=== PATIENT | female | born 1995 | race Caucasian/White ===

== ENCOUNTER 2024-04-06 11:10 | Emergency (ER) | payer MEDICAID, SELFPAY ==
[2024-04-06] VITALS (13 sets, daily range): BP systolic 102–145; BP diastolic 68–92; PULSE 62–85; TEMP 36.8; O2SAT 97–100; BMI 30.4
--- NOTE | 2024-04-06 11:38 | PC.NURSE ---
Patient reports history of a small kidney on right side and history of sepsis with kidney failure last July. 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 Patient has had right flank pain for past 2 weeks and was hoping it was just a kidney stone and would pass. patient is currently in methadone clinic for addiction issues and had recent treatment for hepatitis C. patient endorses one episode of vomiting yesterday. Patient states she was able to receive her methadone today
--- NOTE | 2024-04-06 11:53 | CT_ITS ---
[address] [address] Patient Name: ELBERT HOFFMAN MRN: [id number] date: 1995 Sex: F Assigned Patient Location: ED.MAIN Current Patient Location: Accession/Order Number: [id number] Exam Date: 04/06/2024 12:26 Report Date: 04/06/2024 12:52 At the request of: YANY CARSON Procedure: CT abdomen pelvis wo con EXAMINATION: CT abdomen pelvis wo con HISTORY: flank pain COMPARISON: No relevant comparison available. TECHNIQUE: Axial, Coronal, and Sagittal images were created without IV contrast. Dose reduction techniques were achieved by using automated exposure control and/or adjustment of mA and/or kV according to patient size and/or use of iterative reconstruction technique. FINDINGS: LUNG BASES: No visible pulmonary or pleural disease. LIVER: No enlargement, atrophy, abnormal density, or significant focal lesion. BILIARY: No dilatation or calcification. PANCREAS: No lesion, fluid collection, ductal dilatation, or atrophy. SPLEEN: No enlargement or focal lesion. ADRENALS: No mass or enlargement. KIDNEYS: Severe right atrophy with nonobstructing nephrolith. Normal left. Bilateral nonobstructing nephroliths BOWEL/MESENTERY: No visible mass, obstruction, or bowel wall thickening. Normal appendix AORTA/VASCULAR: No aneurysm or dissection. RETROPERITONEUM: No mass or adenopathy. LYMPH NODES: No adenopathy. URINARY BLADDER: No visible focal wall thickening, lesion, or calculus. PELVIC ORGANS: No visible mass. Pelvic organs appropriate for patient age. ABDOMINAL WALL: No mass or hernia. BONES: No bony lesion or fracture. OTHER: Negative. CT/CT abdomen pelvis wo con IMPRESSION: Bilateral nonobstructing nephrolithiasis No obstructive uropathy Electronically authenticated by: TRAMAINE ARMSTRONG Date: 04/06/2024 12:52
[2024-04-06 12:01] LABS: Basophils Percent Auto 0.3 % (0.2-2.0); Eosinophils Absolute Auto 0.2 10^3/uL (0.0-0.7); Hematocrit 40.9 % (36.0-48.0); Immature Granulocytes Abs Auto 0.02 10^3/uL (0.00-0.03); Immature Granulocytes Pct Auto 0.2 % (0.0-0.5); Lymphocytes Absolute Auto 3.2 10^3/uL (1.2-3.8); Mean Corpuscular HGB Conc 34.2 g/dL (29.9-35.2); Mean Corpuscular Hemoglobin 33.7 pg (26.7-34.0); Mean Corpuscular Volume 98.3 fL (81.0-99.0); Mean Platelet Volume 10.9 fL (9.5-13.5); Monocytes Absolute Auto 0.5 10^3/uL (0.3-0.8); Neutrophils Absolute Auto 6.1 10^3/uL (1.4-6.5); Neutrophils Percent Auto 60.5 % (43.0-75.0); Platelet Count 279 10^3/uL (150-450); Red Blood Count 4.16 10^6/uL (4.20-5.40); Red Cell Distribution Width 12.4 % (11.0-15.0); White Blood Count 10.1 10^3/uL (4.0-11.0)
[2024-04-06 12:02] LABS: Bilirubin Urine NEGATIVE (NEGATIVE); Blood Urine NEGATIVE (NEGATIVE); Clarity Urine SL CLOUDY (CLEAR); Color Urine YELLOW (YELLOW); Glucose Urine UA NEGATIVE (NEGATIVE); Ketones Urine TRACE mg/dL (NEGATIVE); Leukocyte Esterase Urine MODERATE (NEGATIVE); Nitrite Urine NEGATIVE (NEGATIVE); Protein Urine TRACE mg/dL (NEG/TRACE); Specific Gravity Urine 1.025 (1.005-1.025); Urobilinogen Urine 0.2 EU/dL (0.2-1.0)
[2024-04-06 12:06] LABS: Urine Microscopic Indicated YES
[2024-04-06 12:12] LABS: Bacteria Urine MODERATE #/HPF (NONE SEEN); Calcium Oxalate Crystals Urine FEW; Cast Seen? NONE SEEN #/LPF (NONE SEEN); Crystals Seen? Seen #/HPF (None Seen); Mucus Urine TRACE (NONE SEEN); Squamous Epithelial Cell Urine MODERATE #/LPF (NONE/RARE); Urine Culture Indicated YES
[2024-04-06 12:26] LABS: Alanine Aminotransferase 19 U/L (14-59); Albumin Globulin Ratio 0.9; Albumin Level 3.8 g/dL (3.4-5.0); Alkaline Phosphatase 97 U/L (46-116); Aspartate Amino Transferase 19 U/L (15-37); BUN Creatinine Ratio 11.8; Bilirubin Total 0.2 mg/dL (0.2-1.0); Calcium 8.9 mg/dL (8.5-10.1); Carbon Dioxide 26.7 mmol/L (21.0-32.0); Chloride 104 mmol/L (98-107); Estimated GFR (African America >60 (>=60); Estimated GFR (Non-African Ame 50 (>=60); Glucose 93 mg/dL (74-106); Potassium 3.7 mmol/L (3.5-5.1); Sodium 141 mmol/L (136-145); Total Protein 7.8 g/dL (6.4-8.2)
--- NOTE | 2024-04-06 12:29 | ED.GENADUL1 ---
HPI HPI - General Adult General Chief complaint: Urogenital-Female Stated complaint: KIDNEY ISSUES Time Seen by Provider: 04/06/24 11:21 Source: patient Mode of arrival: walk-in Limitations: no limitations History of Present Illness HPI narrative: Patient presents to ED complaining of flank pain. She says she has had right-sided flank pain for the past few days that she thought maybe it was a kidney stone but she has not gotten any better. She has a history of sepsis with obstructing stones in the past she has had lithotripsy and nephrostomy tubes in the past. She does have a history of IV drug abuse but is at the methadone clinic now. No fevers But she has had nausea vomiting today. No abdominal pain just flank pain. Denies . Related Data Previous Rx's ?Medication ?Instructions ?Recorded cephalexin 500 mg capsule 500 mg PO BID 7 days #14 caps 04/06/24 Allergies Allergy/AdvReac Type Severity Reaction Status Date / Time nalbuphine [From Nubain] Allergy Intermediate Verified 04/06/24 11:17 Opioid HPI Opioid Management Most Recent Opioid Data: Last Pain Scale 6 04/06/24 12:59 Last MAR Pain Assessment 04/06/24 12:59 Review of Systems ROS Status of ROS 10 or more systems reviewed and unremarkable except as noted in history and below Exam Narrative Exam Narrative: Time Seen: [] Vital Signs: [Per nurse's notes.] General: [Alert] Skin: [Warm, dry, no rash.] Head: [Normocephalic, atraumatic.] Neck: [Supple, trachea midline.] Eye: [Pupils are equal, round and reactive to light, extraocular movements are intact, normal conjunctiva.] Ears, nose, mouth and throat: oral mucosa moist. Cardiovascular: [Regular rate and rhythm, no murmur.] Respiratory: [Lungs are clear to auscultation, respirations are non-labored, breath sounds are equal.] Chest wall: [No tenderness, no deformity.] Gastrointestinal: [Soft, nontender, non distended, normal bowel sounds.]Right CVA tenderness MSK: 5 out of 5 muscle strength x 4 extremities no calf pain or edema Lymphatics: [No lymphadenopathy.] Psychiatric: [Cooperative, appropriate mood & affect.] Neurological: [Alert and oriented to person, place, time, and situation, no focal neurological deficit observed.] Constitutional Vital Signs, click to edit/add: Last Vital Signs Temp 98.3 F 04/06/24 11:14 Pulse 85 04/06/24 11:14 Resp 18 04/06/24 11:14 BP 127/78 04/06/24 12:00 Pulse Ox 99 04/06/24 12:40 Course Vital Signs Vital signs: Vital Signs Temperature 98.3 F 04/06/24 11:14 Pulse Rate 85 04/06/24 11:14 Respiratory Rate 18 04/06/24 11:14 Blood Pressure 145/79 H 04/06/24 11:14 Pulse Oximetry 100 04/06/24 11:14 Temperature 98.3 F 04/06/24 11:14 Pulse Rate 85 04/06/24 11:14 Respiratory Rate 18 04/06/24 11:14 Blood Pressure 127/78 04/06/24 12:00 Pulse Oximetry 99 04/06/24 12:40 Medical Decision Making MDM Narrative Medical decision making narrative: Patient's labs show urinary tract infection. No elevated white blood cell count no fever. CT scan shows atrophied right kidney which is a known issue. No obstructing kidney stone no evidence of pyelonephritis. Patient will be given oral antibiotics after her dose of IV antibiotics here. Okay with discharge home no need for hospital admission at this time. Return to ER if worsening pain fevers chills vomiting or any other concerns occur Differential Diagnosis Differential Diagnosis: Kidney stone pyelonephritis UTI sepsis Medical Records Medical records reviewed: Yes I reviewed the patient's medical records Lab Data Lab results reviewed: Yes I reviewed the patient's lab results Labs: Lab Results 04/06/24 04/06/24 Range/Units 11:20 11:28 WBC 10.1 (4.0-11.0) 10^3/uL RBC 4.16 L (4.20-5.40) 10^6/uL Hgb 14.0 (12.0-16.0) g/dL Hct 40.9 (36.0-48.0) % MCV 98.3 (81.0-99.0) fL MCH 33.7 (26.7-34.0) pg MCHC 34.2 (29.9-35.2) g/dL RDW 12.4 (11.0-15.0) % Plt Count 279 (150-450) 10^3/uL MPV 10.9 (9.5-13.5) fL Neut % (Auto) 60.5 (43.0-75.0) % Lymph % (Auto) 32.0 (20.5-60.0) % [place] % (Auto) 5.0 (1.7-12.0) % Eos % (Auto) 2.0 (0.9-7.0) % Baso % (Auto) 0.3 (0.2-2.0) % Neut # (Auto) 6.1 (1.4-6.5) 10^3/uL Lymph # (Auto) 3.2 (1.2-3.8) 10^3/uL [place] # (Auto) 0.5 (0.3-0.8) 10^3/uL Eos # (Auto) 0.2 (0.0-0.7) 10^3/uL Baso # (Auto) 0.0 (0.0-0.1) 10^3/uL Abs Immat Gran (auto) 0.02 (0.00-0.03) 10^3/uL Imm/Tot Granulo (auto) 0.2 (0.0-0.5) % Sodium 141 (136-145) mmol/L Potassium 3.7 (3.5-5.1) mmol/L Chloride 104 (98-107) mmol/L Carbon Dioxide 26.7 (21.0-32.0) mmol/L Anion Gap 14.0 BUN 15.0 (7.0-18.0) mg/dL Creatinine 1.27 H (0.55-1.02) mg/dL Est GFR ( Amer) >60 (>=60) Est GFR (Non-Af Amer) 50 L (>=60) BUN/Creatinine Ratio 11.8 Glucose 93 (74-106) mg/dL Calcium 8.9 (8.5-10.1) mg/dL Total Bilirubin 0.2 (0.2-1.0) mg/dL AST 19 (15-37) U/L ALT 19 (14-59) U/L Alkaline Phosphatase 97 (46-116) U/L Total Protein 7.8 (6.4-8.2) g/dL Albumin 3.8 (3.4-5.0) g/dL Globulin 4.0 g/dL Albumin/Globulin Ratio 0.9 Urine Color Yellow (YELLOW) Urine Clarity Sl cloudy (CLEAR) Urine pH 6.0 (5.0-9.0) Ur Specific [place] 1.025 (1.005-1.025) Urine Protein Trace (NEG/TRACE) mg/dL Urine Glucose (UA) Negative (NEGATIVE) mg/dL Urine Ketones Trace A (NEGATIVE) mg/dL Urine Occult Blood Negative (NEGATIVE) Urine Nitrite Negative (NEGATIVE) Urine Bilirubin Negative (NEGATIVE) Urine Urobilinogen 0.2 (0.2-1.0) EU/dL Ur Leukocyte Esterase Moderate A (NEGATIVE) Urine RBC 2-5 A (0-2) #/HPF Urine WBC 2-5 A (NONE SEEN) #/HPF Ur Squamous Epith Cells Moderate A (NONE/RARE) #/LPF Urine Crystals Seen A (None Seen) #/HPF Calcium Oxalate Crystal Few Urine Bacteria Moderate A (NONE SEEN) #/HPF Urine Casts None seen (NONE SEEN) #/LPF Urine Mucus Trace A (NONE SEEN) Ur Culture Indicated? Yes Imaging Data CT scan - abdomen: Radiologist's impression: ITS Impressions Abdomen/Pelvis CT 04/06/24 11:53 IMPRESSION: Bilateral nonobstructing nephrolithiasis No obstructive uropathy Electronically authenticated by: TRAMAINE ARMSTRONG Date: 04/06/2024 12:52 Discharge Plan Discharge Stand Alone Forms: Portal Instructions Chief Complaint: Urogenital-Female Clinical Impression: Urinary tract infection Patient Disposition: Home, Self-Care Time of Disposition Decision: 13:04 Condition: Good Mode of Transportation: Private Vehicle Prescriptions / Home Meds: New cephalexin 500 mg capsule 500 mg PO BID 7 Days Qty: 14 0RF Print Language: Mozambican Instructions: Urinary Tract Infection in Women (DC) Referrals: Physician,Non-Staff, [Primary Care Provider] - 1 week
[2024-04-06] MEDS: 0.9 % SODIUM CHLORIDE 1,000 ML 1000 ML IV (12:45)
[2024-04-06] MEDS: CEFTRIAXONE 1,000 MG in 0.9 % SODIUM CHLORIDE 50 ML 100 MG IV (12:46)
[2024-04-06] MEDS: KETOROLAC TROMETHAMINE 30 MG/ML VIAL IVP (12:59)
[2024-04-06] MEDS: ONDANSETRON PF 4 MG/2 ML VIAL IV (12:59)
[2024-04-06 13:09] LABS: Lactate/Lactic Acid 1.2 mmol/L (0.4-2.0)
--- NOTE | 2024-04-09 15:02 | PC.NURSE ---
04/09/24 1502 pt urine c+s from 04/06/[address] mclain. nno. Patt Barreto RN
== END 2024-04-06 13:49 | disposition home or self-care (01) ==
PROVIDERS: Emergency Provider Emergency Medicine
DX: N39.0 Urinary tract infection, site not specified (principal); Z87.442 Personal history of urinary calculi
CPT/HCPCS: 36415; 74176; 80053; 81001; 83605; 85025; 87086; 87150; 87186; 96361; 96365; 96375; 99284; J0696; J1885; J2405

== ENCOUNTER 2024-07-09 20:23 | Emergency (ER) | payer MEDICAID, SELFPAY ==
[2024-07-09 20:33] VITALS: BP 123/86; PULSE 77; TEMP 36.9; O2SAT 98; BMI 30.4
--- NOTE | 2024-07-09 20:44 | ED_ITS ---
HPI - Female Genitourinary General Chief complaint: Urogenital-Female Stated complaint: FLANK PAIN Time Seen by Provider: 07/09/24 20:39 Source: patient Mode of arrival: walk-in Limitations: no limitations History of Present Illness HPI Narrative: 28-year-old female presents for possible UTI. She has been having some pain on the right side and she states her urine smells strong. She has had the symptoms for about a week. No gross hematuria. She also has history of kidney stones but there is been no injury or gross hematuria or left-sided pain. She is being treated at a methadone clinic. Related Data Previous Rx's ?Medication ?Instructions ?Recorded ibuprofen 800 mg tablet 800 mg PO Q8H PRN pain #20 tabs 07/09/24 ondansetron 4 mg disintegrating 4 mg PO Q6H PRN nausea and 07/09/24 tablet vomiting #20 tabs tamsulosin 0.4 mg capsule (Flomax) 0.4 mg PO DAILY #7 caps 07/09/24 Allergies Allergy/AdvReac Type Severity Reaction Status Date / Time nalbuphine [From Nubain] Allergy Intermediate Vomiting Verified 07/09/24 20:33 Review of Systems ROS Narrative A ten point review of systems is negative except as noted above. PFSH PFSH Social History Little interest or pleasure in doing things: not at all Feeling down, depressed, or hopeless: not at all Exam Narrative Exam Narrative: Nurses note and vital signs reviewed and patient is not hypoxic. General: The patient appears well and in no apparent distress. Patient is resting comfortably on cart. Skin: Warm, dry, no pallor noted. There is no rash noted. Head: Normocephalic, atraumatic Eye: Normal conjunctiva, no drainage Ears, Nose, Mouth, and Throat: oral mucosa is moist. Nares patent. Cardiovascular: Regular Rate and Rhythm Respiratory: Patient is in no distress, no accessory muscle use, lungs are clear to auscultation, no wheezing, rales or rhonchi Back: non-tender, no CVA tenderness bilaterally to percussion. GI: Soft and nontender. No bruise or rash Musculoskeletal: The patient has no evidence of calf tenderness, no pitting edema, symmetrical pulses noted bilaterally Neurological: A&O, normal speech Psychiatric: Cooperative Constitutional Vital Signs, click to edit/add: Last Vital Signs Temp 98.4 F 09/14/24 20:33 Pulse 77 07/09/24 20:33 Resp 18 07/09/24 20:33 BP 123/86 07/09/24 20:33 Pulse Ox 98 07/09/24 20:33 O2 Del Method Room Air 07/09/24 20:33 Course Vital Signs Vital signs: Vital Signs Temperature 98.4 F 07/09/24 20:33 Pulse Rate 77 07/09/24 20:33 Respiratory Rate 18 07/09/24 20:33 Blood Pressure 123/86 07/09/24 20:33 Pulse Oximetry 98 07/09/24 20:33 Oxygen Delivery Method Room Air 07/09/24 20:33 Temperature 98.4 F 07/09/24 20:33 Pulse Rate 77 07/09/24 20:33 Respiratory Rate 18 07/09/24 20:33 Blood Pressure 123/86 07/09/24 20:33 Pulse Oximetry 98 07/09/24 20:33 Oxygen Delivery Method Room Air 07/09/24 20:33 MDM - Female Genitourinary MDM Narrative Medical decision making narrative: CT on my interpretation shows a 3 mm mid ureteral stone. She does not require admission to the hospital and she is prescribed Flomax, Zofran, and ibuprofen. She is in a methadone clinic and we will avoid narcotics. She is referred to urology. Treatment diagnosis and follow-up were discussed with the patient. Differential Diagnosis Differential diagnosis: Likely urinary tract infection and other (Kidney stone) Lab Data Attestation: I reviewed the patient's lab results. Labs: Lab Results 07/09/24 Range/Units 20:43 Urine Color Lt. yellow (YELLOW) Urine Clarity Clear (CLEAR) Urine pH 6.5 (5.0-9.0) Ur Specific [place] 1.015 (1.005-1.025) Urine Protein Negative (NEG/TRACE) mg/dL Urine Glucose (UA) Negative (NEGATIVE) mg/dL Urine Ketones Negative (NEGATIVE) mg/dL Urine Occult Blood Negative (NEGATIVE) Urine Nitrite Negative (NEGATIVE) Urine Bilirubin Negative (NEGATIVE) Urine Urobilinogen 0.2 (0.2-1.0) EU/dL Ur Leukocyte Esterase Trace A (NEGATIVE) Urine RBC None seen (0-2) #/HPF Urine WBC 2-5 A (NONE SEEN) #/HPF Ur Squamous Epith Cells Few A (NONE/RARE) #/LPF Urine Crystals None seen (None Seen) #/HPF Urine Bacteria Trace A (NONE SEEN) #/HPF Urine Casts None seen (NONE SEEN) #/LPF Urine Mucus None seen (NONE SEEN) Urine HCG, Qual Negative (NEGATIVE) Imaging Data CT scan - abdomen: My impression: 3 mm right ureteral stone Discharge Plan Discharge Chief Complaint: Urogenital-Female Clinical Impression: Kidney stone Patient Disposition: Home, Self-Care Time of Disposition Decision: 22:34 Condition: Good Mode of Transportation: Private Vehicle Prescriptions / Home Meds: New ibuprofen 800 mg tablet 800 mg PO Q8H PRN (Reason: pain) Qty: 20 0RF tamsulosin [Flomax] 0.4 mg capsule 0.4 mg PO DAILY Qty: 7 0RF ondansetron 4 mg tablet,disintegrating 4 mg PO Q6H PRN (Reason: nausea and vomiting) Qty: 20 0RF Print Language: Uzbek Instructions: Kidney Stones (ED), How to Strain Your Urine (ED) Referrals: LUIS A RICHARDSON [Primary Care Provider] - 1 week Cirilo Mayes MD [Physician] - 1 week
[2024-07-09 20:56] LABS: Bilirubin Urine NEGATIVE (NEGATIVE); Blood Urine NEGATIVE (NEGATIVE); Clarity Urine CLEAR (CLEAR); Color Urine LT. YELLOW (YELLOW); Glucose Urine UA NEGATIVE (NEGATIVE); Ketones Urine NEGATIVE (NEGATIVE); Leukocyte Esterase Urine TRACE (NEGATIVE); Nitrite Urine NEGATIVE (NEGATIVE); Protein Urine NEGATIVE (NEG/TRACE); Specific Gravity Urine 1.015 (1.005-1.025); Urobilinogen Urine 0.2 EU/dL (0.2-1.0); pH Urine 6.5 (5.0-9.0)
[2024-07-09 20:58] LABS: HCG Qualitative Urine* NEGATIVE (NEGATIVE); Internal Control Within Normal Limits
[2024-07-09 21:19] LABS: Bacteria Urine TRACE #/HPF (NONE SEEN); Cast Seen? NONE SEEN #/LPF (NONE SEEN); Crystals Seen? None Seen #/HPF (None Seen); Mucus Urine NONE SEEN (NONE SEEN); RBC Urine NONE SEEN #/HPF (0-2); Squamous Epithelial Cell Urine FEW #/LPF (NONE/RARE)
--- NOTE | 2024-07-09 21:23 | CT_ITS ---
[address] [address] Patient Name: ELBERT HOFFMAN MRN: [id number] date: 1995 Sex: F Assigned Patient Location: ER Current Patient Location: Accession/Order Number: [id number] Exam Date: 07/09/2024 21:32 Report Date: 07/09/2024 23:05 At the request of: LEODAN MCFARLAND Procedure: CT abdomen pelvis wo con CT ABDOMEN/PELVIS WITHOUT IV CONTRAST. INDICATION: right flank pain, r/o stone COMPARISON: 04/06/2024 TECHNIQUE: Contiguous axial images were obtained from the lung bases to the pelvic floor without intravenous or oral contrast. Coronal and sagittal reformations are provided. FINDINGS: Somewhat limited evaluation due to motion artifact. LOWER LUNGS: Clear. LIVER/BILIARY TREE: No discrete lesion. No intrahepatic ductal dilatation. GALLBLADDER: No significant gallbladder wall thickening. No radiopaque stone. CBD: Normal CBD. SPLEEN: Normal in size. PANCREAS: No appreciable peripancreatic fluid. No pancreatic ductal dilatation. No discrete lesion. ADRENALS: Normal. KIDNEYS: Redemonstrated severely atrophic right kidney. No hydronephrosis. There is a nonobstructing 5 mm left renal stone. STOMACH AND BOWEL: Stomach is unremarkable. No dilated bowel loops. No bowel wall thickening. Moderate colonic fecal load. APPENDIX: Normal appendix. PERITONEAL CAVITY: No fluid. No fat stranding. ABDOMINAL WALL: No subcutaneous stranding. No subcutaneous fluid collection. LYMPH NODES: No mesenteric or retroperitoneal lymphadenopathy by CT criteria. ABDOMINAL AORTA: No aneurysm. PELVIS: No acute abnormality. MUSCULOSKELETAL: No acute osseous abnormality. CT/CT abdomen pelvis wo con IMPRESSION: 1. No acute abnormality in the abdomen or pelvis. 2. Moderate colonic fecal load. 3. Left nephrolithiasis. No obstructive uropathy. Electronically authenticated by: SRINIVAS LOMAS Date: 07/09/2024 23:05
== END 2024-07-09 22:42 | disposition home or self-care (01) ==
PROVIDERS: Emergency Provider Emergency Medicine; PCP Family Medicine
DX: N20.0 Calculus of kidney (principal); Z87.442 Personal history of urinary calculi
CPT/HCPCS: 74176; 81001; 84703; 99284

== ENCOUNTER 2025-02-22 13:04 | Emergency (ER) | payer MEDICAID, SELFPAY ==
[2025-02-22 13:32] VITALS: BP 152/88; PULSE 76; TEMP 36.8; O2SAT 98; BMI 25.8
[2025-02-22 13:47] LABS: Bilirubin Urine NEGATIVE (NEGATIVE); Blood Urine NEGATIVE (NEGATIVE); Clarity Urine CLEAR (CLEAR); Color Urine LT. YELLOW (YELLOW); Glucose Urine UA NEGATIVE (NEGATIVE); Ketones Urine NEGATIVE (NEGATIVE); Leukocyte Esterase Urine TRACE (NEGATIVE); Nitrite Urine NEGATIVE (NEGATIVE); Protein Urine NEGATIVE (NEG/TRACE); Specific Gravity Urine 1.015 (1.005-1.025); Urobilinogen Urine 0.2 EU/dL (0.2-1.0); pH Urine 6.5 (5.0-9.0)
[2025-02-22 13:49] LABS: Urine Microscopic Indicated YES
[2025-02-22 13:58] LABS: Bacteria Urine TRACE #/HPF (NONE SEEN); RBC Urine 0-2 #/HPF (0-2)
[2025-02-22 13:59] LABS: Cast Seen? NONE SEEN #/LPF (NONE SEEN); Crystals Seen? None Seen #/HPF (None Seen); Mucus Urine TRACE (NONE SEEN); Squamous Epithelial Cell Urine FEW #/LPF (NONE/RARE); Urine Culture Indicated NO
--- NOTE | 2025-02-22 14:40 | ED.GENADUL1 ---
HPI HPI - General Adult General Chief complaint: Abdominal Pain Stated complaint: FOGGY IN HEAD, NOT URINATING, ABDOMINAL PAIN, FLA Time Seen by Provider: 02/22/25 14:38 Source: patient Mode of arrival: walk-in History of Present Illness HPI narrative: 29 year old female presents to the ED with concerns regarding her renal function. States she has noticed that she does not have the appropriate amount of urine output for the fluids that she has been drinking. Reports noticing a film that sits on top of her urine. Onset was a few days ago. She is concerned she is going to need dialysis. Denies fever, chills, dizziness, CP, SOB. Denies abd pain, N/V/D, flank pain. Denies dysuria, hematuria. Denies vaginal bleeding, discharge, odor, itching. Related Data Home Medications ?Medication ?Instructions ?Recorded ?Confirmed methadone 10 mg/5 mL oral solution 120 mg PO DAILY 02/22/25 02/22/25 Allergies Allergy/AdvReac Type Severity Reaction Status Date / Time nalbuphine (From Nubain) Allergy Intermediate Vomiting Verified 07/09/24 20:33 Opioid HPI Opioid Management Most Recent Opioid Data: Last Pain Scale 3 07/09/24, 20:40 Review of Systems ROS Constitutional Denies: fever or chills Ears, nose, mouth, and throat Denies: neck pain Cardiovascular Denies: chest pain Respiratory Denies: shortness of breath or cough Gastrointestinal Denies: abdominal pain, nausea, vomiting or diarrhea Genitourinary Denies: painful urination, urinary frequency, urinary urgency, urinary incontinence, blood in urine, difficulty voiding, vaginal bleeding, vaginal discharge, genital lesion, genital itching or vaginal odor Musculoskeletal Denies: back pain or neck pain Integumentary/Breast Denies: rash Neurological Denies: headache, weakness in extremities or dizziness PFSH PFSH Social History Little interest or pleasure in doing things: not at all Feeling down, depressed, or hopeless: not at all Exam Constitutional Vital Signs, click to edit/add: Last Vital Signs Temp 98.2 F 02/22/25 13:32 Pulse 76 02/22/25 13:32 Resp 18 02/22/25 13:32 BP 152/88 H 02/22/25 13:32 Pulse Ox 98 02/22/25 13:32 O2 Del Method Room Air 02/22/25 13:32 Common normals: no apparent distress and oriented x3 General appearance: cooperative HENMT Common normals: external ears normal and moist oral mucous membranes Eye Common normals: conjunctivae normal and no scleral icterus Neck & C-Spine Common normals: supple and no meningeal signs Chest Chest: symmetrical chest wall rise Respiratory Common normals: normal respiratory effort and clear to auscultation bilaterally Effort & inspection: able to speak in complete sentences and symmetric chest movement Cardio Common normals: regular rate and regular rhythm Neuro Common normals: oriented x3, moves all extremities and no focal motor deficits Sensorium/orientation: awake and alert Speech: speech normal Gait (neuro): normal gait Course Vital Signs Vital signs: Vital Signs Temperature 98.2 F 02/22/25 13:32 Pulse Rate 76 02/22/25 13:32 Respiratory Rate 18 02/22/25 13:32 Blood Pressure 152/88 H 02/22/25 13:32 Pulse Oximetry 98 02/22/25 13:32 Oxygen Delivery Method Room Air 02/22/25 13:32 Temperature 98.2 F 02/22/25 13:32 Pulse Rate 76 02/22/25 13:32 Respiratory Rate 18 02/22/25 13:32 Blood Pressure 152/88 H 02/22/25 13:32 Pulse Oximetry 98 02/22/25 13:32 Oxygen Delivery Method Room Air 02/22/25 13:32 Medical Decision Making MDM Narrative Medical decision making narrative: BUN was 20, creatinine 1.06. Her previous creatinine was 1.27 which was on 04/06/24. Urinalysis was unremarkable. Findings were discussed with the patient. Follow up with pcp for a recheck, further evaluation and treatment. Medical Records Medical records reviewed: Yes I reviewed the patient's medical records Lab Data Lab results reviewed: Yes I reviewed the patient's lab results Labs: Lab Results 02/22/25 02/22/25 Range/Units 13:31 14:55 WBC 8.6 (4.0-11.0) 10^3/uL RBC 4.42 (4.20-5.40) 10^6/uL Hgb 14.9 (12.0-16.0) g/dL Hct 43.8 (36.0-48.0) % MCV 99.1 H (81.0-99.0) fL MCH 33.7 (26.7-34.0) pg MCHC 34.0 (29.9-35.2) g/dL RDW 14.0 (11.0-15.0) % Plt Count 242 (150-450) 10^3/uL MPV 10.4 (9.5-13.5) fL Neut % (Auto) 58.0 (43.0-75.0) % Lymph % (Auto) 29.9 (20.5-60.0) % [place] % (Auto) 8.1 (1.7-12.0) % Eos % (Auto) 3.3 (0.9-7.0) % Baso % (Auto) 0.5 (0.2-2.0) % Neut # (Auto) 5.0 (1.4-6.5) 10^3/uL Lymph # (Auto) 2.6 (1.2-3.8) 10^3/uL [place] # (Auto) 0.7 (0.3-0.8) 10^3/uL Eos # (Auto) 0.3 (0.0-0.7) 10^3/uL Baso # (Auto) 0.0 (0.0-0.1) 10^3/uL Abs Immat Gran (auto) 0.02 (0.00-0.03) 10^3/uL Imm/Tot Granulo (auto) 0.2 (0.0-0.5) % Sodium 138 (136-145) mmol/L Potassium 4.3 (3.5-5.1) mmol/L Chloride 102 (98-107) mmol/L Carbon Dioxide 27.0 (21.0-32.0) mmol/L Anion Gap 13.3 BUN 20.0 H (7.0-18.0) mg/dL Creatinine 1.06 H (0.55-1.02) mg/dL Est GFR ( Amer) >60 (>=60 mL/min/1.73m^2) Est GFR (Non-Af Amer) >60 (>=60 mL/min/1.73m^2) BUN/Creatinine Ratio 18.9 Glucose 93 (74-106) mg/dL Calcium 9.1 (8.5-10.1) mg/dL Urine Color Lt. yellow (YELLOW) Urine Clarity Clear (CLEAR) Urine pH 6.5 (5.0-9.0) Ur Specific [employer] 1.015 (1.005-1.025) Urine Protein Negative (NEG/TRACE) mg/dL Urine Glucose (UA) Negative (NEGATIVE) mg/dL Urine Ketones Negative (NEGATIVE) mg/dL Urine Occult Blood Negative (NEGATIVE) Urine Nitrite Negative (NEGATIVE) Urine Bilirubin Negative (NEGATIVE) Urine Urobilinogen 0.2 (0.2-1.0) EU/dL Ur Leukocyte Esterase Trace A (NEGATIVE) Urine RBC 0-2 (0-2) #/HPF Urine WBC 2-5 A (NONE SEEN) #/HPF Ur Squamous Epith Cells Few A (NONE/RARE) #/LPF Urine Crystals None seen (None Seen) #/HPF Urine Bacteria Trace A (NONE SEEN) #/HPF Urine Casts None seen (NONE SEEN) #/LPF Urine Mucus Trace A (NONE SEEN) Ur Culture Indicated? No Urine HCG, Qual Negative (NEGATIVE) Discharge Plan Discharge Chief Complaint: Abdominal Pain Clinical Impression: No problem, feared complaint unfounded Patient Disposition: Home, Self-Care Time of Disposition Decision: 15:31 Condition: Good Mode of Transportation: Private Vehicle Prescriptions / Home Meds: No Action methadone 10 mg/5 mL solution 120 mg PO DAILY Print Language: Romansh Instructions: Dehydration (ED) Referrals: LUIS A RICHARDSON [Primary Care Provider, Family Practice] - 1 week
[2025-02-22 15:03] LABS: Basophils Percent Auto 0.5 % (0.2-2.0); Eosinophils Absolute Auto 0.3 10^3/uL (0.0-0.7); Eosinophils Percent Auto 3.3 % (0.9-7.0); Hematocrit 43.8 % (36.0-48.0); Hemoglobin 14.9 g/dL (12.0-16.0); Immature Granulocytes Abs Auto 0.02 10^3/uL (0.00-0.03); Immature Granulocytes Pct Auto 0.2 % (0.0-0.5); Lymphocytes Absolute Auto 2.6 10^3/uL (1.2-3.8); Lymphocytes Percent Auto 29.9 % (20.5-60.0); Mean Corpuscular Hemoglobin 33.7 pg (26.7-34.0); Mean Corpuscular Volume 99.1 fL (81.0-99.0); Mean Platelet Volume 10.4 fL (9.5-13.5); Monocytes Absolute Auto 0.7 10^3/uL (0.3-0.8); Monocytes Percent Auto 8.1 % (1.7-12.0); Platelet Count 242 10^3/uL (150-450); Red Blood Count 4.42 10^6/uL (4.20-5.40); White Blood Count 8.6 10^3/uL (4.0-11.0)
[2025-02-22 15:06] LABS: HCG Qualitative Urine* NEGATIVE (NEGATIVE); Internal Control Within Normal Limits
[2025-02-22 15:12] LABS: Anion Gap 13.3; BUN Creatinine Ratio 18.9; Calcium 9.1 mg/dL (8.5-10.1); Chloride 102 mmol/L (98-107); Estimated GFR (African America >60 (>=60 mL/min/1.73m^2); Estimated GFR (Non-African Ame >60 (>=60 mL/min/1.73m^2); Glucose 93 mg/dL (74-106); Potassium 4.3 mmol/L (3.5-5.1); Sodium 138 mmol/L (136-145)
== END 2025-02-22 15:37 | disposition home or self-care (01) ==
PROVIDERS: Nurse Practitioner Family; Emergency Provider Emergency Medicine; PCP Family Medicine
DX: Z03.89 Encounter for observation for other suspected diseases and conditions ruled out (principal)
CPT/HCPCS: 36415; 80048; 81001; 84703; 85025; 99284